=== PATIENT | male | born 1965 | race Caucasian/White ===

== ENCOUNTER → 2016-10-03 | Outpatient (CLI) | payer BC ==
[~2016-10-03] MED LIST: IBUPROFEN800 MG PO; KEFLEX500 MG PO; LORTAB 10/500 T1 TAB PO; VICODIN 5/1 TAB 5/50 PO; VOLTAREN75 MG PO
--- NOTE | ~2016-10-03 | CR63 ---
[facility]. [place] A Service of [facility] & [facility] RADIOLOGY TEXT RESULTS PATIENT: GARRETT VICENTE LOCATION: [facility] : 69 UNIT #: [id number] AGE: [address]: Bam Pettit MD SEX: M ORDER DR: [id number] [address] [id number] O MR#: [id number] Acc #: [id number] NAME: GARRETT VICENTE : 1965 SEX: M STUDY DATE/TIME: 10/04/2016 UNIT: SRAD ROOM: STUDY DESCRIPTION: CR Chest 2 View Attending Physician: Bam Pettit M.D. Ordering Physician: Bam Pettit M.D. Primary Care Physician: Bam Pettit M.D. MEDICAL IMAGING REPORT This report is preliminary unless electronic signature is present. EXAM Chest 2 views 10/03/2016 1634 hours. HISTORY 51-year-old with shortness of air for 2 weeks intermittently. COMPARISON 11/05/2014 FINDINGS Upright PA and lateral views of the chest demonstrate normal cardiac, mediastinal and hilar contours. The lungs are mildly hyperinflated. There are no acute pulmonary densities or pleural effusions. IMPRESSION Mild hyperinflation. No acute cardiopulmonary findings. Dictated by... Deepthi Terry M.D. THIS IS AN ELECTRONICALLY VERIFIED REPORT Deepthi Terry M.D. at 10/04/2016 3:07 PM Fabiano TD: 10/04/2016 14:26 JOB #: [id number] MEDICAL IMAGING REPORT Page 1 of 1
== END | disposition home or self-care (01) ==
LOC: SRAD 16:24
DX: R06.02 Shortness of breath (principal); R91.8 Other nonspecific abnormal finding of lung field
CPT/HCPCS: 71020